=== PATIENT | male | born 1950 | race Hispanic/Latino ===

== ENCOUNTER 2017-08-11 04:06 | Inpatient (IN) | payer OTHER ==
[2017-08-11] VITALS (13 sets, daily range): BP systolic 107–136; BP diastolic 59–85
[~2017-08-11] VITALS: Ht 172.7 cm; Wt 141.1 kg
[2017-08-11] MEDS ORDERED: SERT50TA12 PO (09:13)
[2017-08-11] MEDS ORDERED: AMLO10TA4 PO (09:13)
[2017-08-11] MEDS ORDERED: TRAZ-144 PO (09:13)
[2017-08-11] MEDS ORDERED: FURO20TA6 PO (09:13)
[2017-08-11] MEDS ORDERED: METF10004 PO (09:13)
[2017-08-11] MEDS ORDERED: ASPI-555 PO (09:13)
[2017-08-11] MEDS ORDERED: ROSU20TA38 PO (09:13)
[2017-08-11] MEDS ORDERED: GABA-531 PO (09:13)
[2017-08-11] MEDS ORDERED: CLOP75TA14 PO (09:13)
[2017-08-11] MEDS ORDERED: LOSA50TA37 PO (09:13)
[2017-08-11] MEDS ORDERED: IOPAMIDOL-370 100 ML VIAL IV ONE (11:42)
[2017-08-11] MEDS ORDERED: ISOVUE-370 50ML VIAL IV ONE (11:42)
[2017-08-11] MEDS ORDERED: LIDOCAINE HCL 2% 20ML ONE (11:42)
[2017-08-11] MEDS ORDERED: HEPARIN SODIUM 1000UNIT/ML 10ML VIAL ONE (11:42)
[2017-08-11] MEDS ORDERED: NITROGLYCERIN 5 MG/ML 10 ML VIAL IV ONE (11:42)
[2017-08-11] MEDS ORDERED: GLUCAGON 1MG KIT 1 MG ML IM PRN (12:45)
[2017-08-11] MEDS ORDERED: DEXTROSE 50%-WATER 50 ML DISP.SYRIN IV PRN (12:45)
[2017-08-11 16:02] LABS: CHOLESTEROL 148 mg/dL (<200); HDL CHOLESTEROL 45 mg/dL (29-71); LDL DIRECT 90 mg/dL (0-99); TRIGLYCERIDES 111 mg/dL (30-200)
[2017-08-11 16:25] LABS: HEMOGLOBIN A1C 7.6 % (4.0-6.0)
[2017-08-11] MEDS ORDERED: TRAZODONE HCL 50 MG TAB PO SCH (21:00)
[2017-08-11] MEDS ORDERED: ATORVASTATIN CALCIUM 40 MG TABLET PO SCH (21:00)
[2017-08-11] MEDS: GABAPENTIN 300 MG CAPSULE PO SCH ×2 (21:00→21:04)
[2017-08-12] VITALS (13 sets, daily range): BP systolic 86–147; BP diastolic 36–85
[2017-08-12 04:28] LABS: HEMATOCRIT 48.5 % (42-54); MEAN CORPUSCULAR HEMOGLOBIN 30.5 pg (27.0-33.0); MEAN CORPUSCULAR HGB CONC 34.4 g/dL (32.0-36.0); MEAN CORPUSCULAR VOLUME 88.6 fL (79-99); NUCLEATED RED BLOOD CELLS 0.1 % (0.0-0.19); PLATELET COUNT (AUTO) 247 K/uL (130-400); RED BLOOD CELL COUNT(AUTO) 5.48 MIL/uL (4.50-6.20); RED CELL DISTRIBUTION WIDTH 13.9 % (11.0-15.5); WHITE BLOOD COUNT (AUTO) 7.8 K/uL (4.8-10.8)
[2017-08-12 04:35] LABS: POTASSIUM 4.7 mmol/L (3.5-5.1)
[2017-08-12 04:36] LABS: BAND NEUTROPHILS % (MANUAL) 9 % (0-2); LYMPHOCYTES % (MANUAL) 21 % (22-44); MONOCYTES % (MANUAL) 4 % (2-9); SEGMENTED NEUTROPHILS % 66 % (40-70)
[2017-08-12 04:37] LABS: MAN.DIFF COMMENT-IMPRESSION MANUAL DIFFERENTIAL; PLATELET MORPHOLOGY COMMENT ADEQUATE
[2017-08-12] MEDS ORDERED: CEFUROXIME 1.5GM+NS 100ML 100 ML IV SCH (06:00)
[2017-08-12] MEDS: CEFUROXIME SODIUM 1.5 GM VIAL IVP SCH ×2 (06:00→16:00)
[2017-08-12] MEDS ORDERED: ASPIRIN 81 MG EC TAB PO SCH (09:00)
[2017-08-12] MEDS ORDERED: LOSARTAN 50 MG TABLET PO SCH (09:00)
[2017-08-12] MEDS: GABAPENTIN 300 MG CAPSULE PO SCH ×2 (09:00→13:08)
[2017-08-12] MEDS ORDERED: FUROSEMIDE 20 MG TABLET PO SCH (09:00)
[2017-08-12] MEDS ORDERED: SERTRALINE HCL 50 MG TABLET PO SCH (09:00)
[2017-08-12] MEDS ORDERED: AMLODIPINE BESYLATE 5 MG TAB PO SCH (09:00)
[2017-08-12] MEDS ORDERED: AMINOCAPROIC ACID 250 MG/ML 20 ML VIAL IV ONE ×2 (12:33→15:27)
[2017-08-12] MEDS ORDERED: NITROGLYCERIN 50 MG/D5% WATER 1 BOT ONE (12:33)
[2017-08-12] MEDS ORDERED: SODIUM CHLORIDE 0.9% 1000ML 1,000 ML IV ONE (14:20)
[2017-08-12] MEDS ORDERED: PAPAVERINE HCL 30 MG/ML 2ML VIAL ONE (14:48)
[2017-08-12] MEDS ORDERED: OCTYL 2-CYANOACRYLATE 1 EACH TP ONE (14:48)
[2017-08-12] MEDS ORDERED: BACITRACIN 50,000 UNIT VIAL ONE (14:49)
[2017-08-12] MEDS ORDERED: PROPOFOL 10 MG/ML 20ML VIAL IV ONE (15:27)
[2017-08-12] MEDS ORDERED: EPINEPHRINE 1 MG/ML AMPULE ONE (15:27)
[2017-08-12] MEDS ORDERED: PROTAMINE SULFATE 10 MG/ML 25ML VIAL IV ONE (15:27)
[2017-08-12] MEDS ORDERED: FENTANYL CITRATE PF 50 MCG/1 ML 20ML VIAL IJ ONE (15:27)
[2017-08-12] MEDS ORDERED: NOREPINEPHRINE BITARTRATE 1 MG/1 ML ML IV ONE ×2 (15:27→16:23)
[2017-08-12] MEDS ORDERED: ROCURONIUM BROMIDE 10MG/1ML 5ML VL ONE ×3 (15:27→16:56)
[2017-08-12] MEDS ORDERED: ESMOLOL HCL 10 MG/ML 10 ML VIAL ONE (15:27)
[2017-08-12] MEDS ORDERED: AMIODARONE HCL 900MG/18ML IV ONE (15:27)
[2017-08-12] MEDS ORDERED: GLYCOPYRROLATE 0.2 MG/ML 5 ML VIAL ONE (15:27)
[2017-08-12] MEDS ORDERED: LIDOCAINE PF 2% 5ML ABBOJECT ONE (15:27)
[2017-08-12] MEDS ORDERED: KETAMINE 50MG/ML SYRINGE 50 MG/ML DISP.SYRIN IV ONE (15:27)
[2017-08-12] MEDS ORDERED: HEPARIN SODIUM 1000UNIT/ML 10ML VIAL ONE ×2 (15:27→16:18)
[2017-08-12] MEDS ORDERED: MILRINONE-D5W 20 MG/100 ML 100 ML IV ONE (15:27)
[2017-08-12] MEDS ORDERED: MIDAZOLAM HCL 1 MG/ML 5ML VIAL ONE (15:28)
[2017-08-12] MEDS ORDERED: SODIUM BICARB 50MEQ 50ML VIAL ONE ×7 (15:32→23:18)
[2017-08-12 16:09] LABS: ABG BASE EXCESS -0.6 mmol/L (-2.0-3.0); ABG HCO3 24.1 mmol/L (21.0-28.0); ABG OXYGEN SATURATION 99.4 % (95.0-99.0); ABG PCO2 40 mmHg (35-48)
[2017-08-12] MEDS ORDERED: THROMBIN-JMI 5000 UNIT/VIAL TP ONE (16:17)
[2017-08-12] MEDS ORDERED: SODIUM CHLORIDE 0.9% 500ML 500 ML IV SCH (17:18)
[2017-08-12] MEDS ORDERED: NICARDIPINE HCL 100 MG in SODIUM CHLORIDE 0.9% 100 ML IV PRN (17:30)
[2017-08-12] MEDS ORDERED: MORPHINE SULFATE 4 MG/1ML SYG IV PRN (17:30)
[2017-08-12] MEDS ORDERED: DEXTROSE 50%-WATER 50 ML DISP.SYRIN IV PRN (17:30)
[2017-08-12] MEDS ORDERED: MAGNESIUM 2GM PREMIX 50ML 50 ML IV PRN (17:30)
[2017-08-12] MEDS ORDERED: MORPHINE SULFATE 2 MG/ML 1ML SYG IV PRN (17:30)
[2017-08-12] MEDS ORDERED: SODIUM BICARB 8.4% 50ML SYRINGE IV PRN (17:30)
[2017-08-12] MEDS ORDERED: GLUCAGON 1MG KIT 1 MG ML IM PRN (17:30)
[2017-08-12] MEDS ORDERED: SODIUM CHLORIDE 0.9% 10 ML VIAL IVP PRN (17:30)
[2017-08-12] MEDS ORDERED: PROPOFOL 1000 MG/100 ML 100 ML IV PRN (17:30)
[2017-08-12] MEDS ORDERED: SODIUM CHLORIDE 0.9% 1000ML 1,000 ML IV SCH (17:30)
[2017-08-12] MEDS ORDERED: HYDROCODONE/ACETAMINOPHEN 5/325 MG TAB PO PRN (17:30)
[2017-08-12] MEDS ORDERED: SODIUM CHLORIDE 0.9% 250 ML IV PRN (17:30)
[2017-08-12] MEDS ORDERED: CALCIUM GLUCONATE 1 GM in SODIUM CHLORIDE 0.9% 50 ML IV PRN (17:30)
[2017-08-12] MEDS ORDERED: ACETAMINOPHEN 325 MG TAB PO PRN (17:30)
[2017-08-12] MEDS ORDERED: ONDANSETRON HCL 4 MG/2 ML VIAL IV PRN (17:30)
[2017-08-12] MEDS ORDERED: AMINOCAPROIC ACID 15,000 MG in SODIUM CHLORIDE 0.9% 250 ML IV SCH (17:30)
[2017-08-12] MEDS ORDERED: ACETAMINOPHEN 650 MG SUPPOSITORY RC PRN (17:30)
[2017-08-12] MEDS ORDERED: NITROGLYCERIN 50 MG/D5% WATER 250 BOT IV SCH (17:30)
[2017-08-12] MEDS ORDERED: ALBUMIN (HUMAN) 5% 250 ML IV PRN (17:30)
[2017-08-12] MEDS ORDERED: POTASSIUM PHOS 15 mMOL+NS250ML 250 ML IV PRN (17:30)
[2017-08-12] MEDS ORDERED: EPINEPHRINE 2 MG in SODIUM CHLORIDE 0.9% 250 ML IV PRN (17:30)
[2017-08-12 18:00] LABS: ABG BASE EXCESS -5.3 mmol/L (-2.0-3.0); ABG HCO3 19.5 mmol/L (21.0-28.0); ABG OXYGEN SATURATION 99.4 % (95.0-99.0); ABG PCO2 36 mmHg (35-48)
[2017-08-12] MEDS ORDERED: SODIUM BICARB 8.4% 50ML SYRINGE ONE (18:01)
[2017-08-12 18:52] LABS: ABG BASE EXCESS -1.2 mmol/L (-2.0-3.0); ABG HCO3 23.2 mmol/L (21.0-28.0); ABG OXYGEN SATURATION 99.2 % (95.0-99.0); ABG PCO2 38 mmHg (35-48)
[2017-08-12] MEDS: INSULIN REGULAR, HUMAN 3ML 100 UNIT in SODIUM CHLORIDE 0.9% 99 ML IV SCH ×2 (19:22)
[2017-08-12 19:23] LABS: ABG HCO3 22.2 mmol/L (21.0-28.0); ABG OXYGEN SATURATION 95.1 % (95.0-99.0); ABG PCO2 44 mmHg (35-48)
[2017-08-12 19:25] LABS: HEMATOCRIT 48.3 % (42-54); MEAN CORPUSCULAR HEMOGLOBIN 29.7 pg (27.0-33.0); MEAN CORPUSCULAR HGB CONC 33.6 g/dL (32.0-36.0); MEAN CORPUSCULAR VOLUME 88.3 fL (79-99); NUCLEATED RED BLOOD CELLS 0.1 % (0.0-0.19); PLATELET COUNT (AUTO) 291 K/uL (130-400); RED BLOOD CELL COUNT(AUTO) 5.47 MIL/uL (4.50-6.20)
[2017-08-12] MEDS ORDERED: EPINEPHRINE 8 MG in SODIUM CHLORIDE 0.9% 250 ML IV PRN (19:30)
[2017-08-12] MEDS: POTASSIUM CHLORIDE 20MEQ/100ML 100 ML IV PRN ×3 (19:33→22:44)
[2017-08-12 19:43] LABS: MAGNESIUM 1.8 mg/dL (1.80-2.40); PHOSPHORUS 4.4 mg/dL (2.5-4.9); POTASSIUM 3.1 mmol/L (3.5-5.1)
[2017-08-12 21:15] LABS: ABG BASE EXCESS -5.2 mmol/L (-2.0-3.0); ABG HCO3 21.3 mmol/L (21.0-28.0); ABG OXYGEN SATURATION 97.3 % (95.0-99.0); ABG PCO2 45 mmHg (35-48)
[2017-08-12 23:15] LABS: ABG HCO3 22.8 mmol/L (21.0-28.0); ABG OXYGEN SATURATION 95.4 % (95.0-99.0); ABG PCO2 43 mmHg (35-48)
[2017-08-13] VITALS (17 sets, daily range): BP systolic 100–139; BP diastolic 44–76
[2017-08-13 00:12] LABS: ABG BASE EXCESS -0.3 mmol/L (-2.0-3.0); ABG OXYGEN SATURATION 96.4 % (95.0-99.0); ABG PCO2 43 mmHg (35-48)
[2017-08-13] MEDS: POTASSIUM CHLORIDE 20MEQ/100ML 100 ML IV PRN ×3 (00:29→05:49)
[2017-08-13] MEDS: NOREPINEPHRINE 4MG/NS 250ML 250 ML IV PRN ×2 (00:36→08:13)
[2017-08-13] MEDS ORDERED: CEFUROXIME SODIUM 1.5 GM VIAL IVP SCH (01:30)
[2017-08-13] MEDS ORDERED: CEFUROXIME 1.5GM+NS 100ML 100 ML IV SCH (01:30)
[2017-08-13 02:33] LABS: ABG BASE EXCESS -2.4 mmol/L (-2.0-3.0); ABG HCO3 24.4 mmol/L (21.0-28.0); ABG OXYGEN SATURATION 95.6 % (95.0-99.0); ABG PCO2 50 mmHg (35-48)
[2017-08-13] MEDS ORDERED: SODIUM BICARB 50MEQ 50ML VIAL ONE (02:38)
[2017-08-13] MEDS: WATER FOR INJECTION,STERILE 20 ML VIAL IJ SCH ×2 (04:00→13:30)
[2017-08-13] MEDS: CEFUROXIME SODIUM 1.5 GM VIAL IVP SCH ×2 (04:14→15:40)
[2017-08-13 05:05] LABS: HEMATOCRIT 45.3 % (42-54); MEAN CORPUSCULAR HEMOGLOBIN 30.4 pg (27.0-33.0); MEAN CORPUSCULAR HGB CONC 34.1 g/dL (32.0-36.0); MEAN CORPUSCULAR VOLUME 89.1 fL (79-99); PLATELET COUNT (AUTO) 258 K/uL (130-400); RED BLOOD CELL COUNT(AUTO) 5.09 MIL/uL (4.50-6.20); WHITE BLOOD COUNT (AUTO) 19.5 K/uL (4.8-10.8)
[2017-08-13 05:13] LABS: CREATININE 1.2 mg/dL (0.5-1.5); MAGNESIUM 2.4 mg/dL (1.80-2.40); PHOSPHORUS 2.5 mg/dL (2.5-4.9); POTASSIUM 3.6 mmol/L (3.5-5.1)
[2017-08-13] MEDS: INSULIN REGULAR, HUMAN 3ML 100 UNIT in SODIUM CHLORIDE 0.9% 99 ML IV SCH ×2 (05:56)
[2017-08-13] MEDS: ASPIRIN 81MG TAB.CHEW PO SCH (08:27)
[2017-08-13] MEDS: PANTOPRAZOLE SODIUM 40 MG TABLET.DR PO SCH (08:27)
[2017-08-13] MEDS: METOPROLOL TARTRATE 25 MG TAB PO SCH ×2 (08:42→20:28)
[2017-08-13] MEDS: HYDROCODONE/ACETAMINOPHEN 5/325 MG TAB PO PRN (19:04)
[2017-08-13] MEDS: ATORVASTATIN CALCIUM 10 MG TABLET PO SCH (20:29)
[2017-08-14] VITALS (21 sets, daily range): BP systolic 88–123; BP diastolic 31–76
[2017-08-14] MEDS: HYDROCODONE/ACETAMINOPHEN 5/325 MG TAB PO PRN ×2 (00:55→06:24)
[2017-08-14] MEDS: CEFUROXIME SODIUM 1.5 GM VIAL IVP SCH (04:40)
[2017-08-14] MEDS: WATER FOR INJECTION,STERILE 20 ML VIAL IJ SCH (04:40)
[2017-08-14 05:14] LABS: HEMATOCRIT 41.4 % (42-54); MEAN CORPUSCULAR HEMOGLOBIN 30.4 pg (27.0-33.0); MEAN CORPUSCULAR HGB CONC 34.3 g/dL (32.0-36.0); MEAN CORPUSCULAR VOLUME 88.7 fL (79-99); PLATELET COUNT (AUTO) 201 K/uL (130-400); RED BLOOD CELL COUNT(AUTO) 4.66 MIL/uL (4.50-6.20); RED CELL DISTRIBUTION WIDTH 14.2 % (11.0-15.5); WHITE BLOOD COUNT (AUTO) 18.6 K/uL (4.8-10.8)
[2017-08-14 05:26] LABS: CREATININE 0.9 mg/dL (0.5-1.5); POTASSIUM 4.1 mmol/L (3.5-5.1)
[2017-08-14 05:30] LABS: MAGNESIUM 2.1 mg/dL (1.80-2.40); PHOSPHORUS 3.1 mg/dL (2.5-4.9)
[2017-08-14] MEDS: INSULIN HUMULIN R 100 UNIT/ML 3ML SQ SCH ×4 (07:30→21:00)
[2017-08-14] MEDS ORDERED: FAMOTIDINE 20MG TAB 20 MG TAB ONE (08:11)
[2017-08-14] MEDS: PANTOPRAZOLE SODIUM 40 MG TABLET.DR PO SCH (08:13)
[2017-08-14] MEDS: METOPROLOL TARTRATE 25 MG TAB PO SCH ×2 (08:13→20:28)
[2017-08-14] MEDS: ASPIRIN 81MG TAB.CHEW PO SCH (08:13)
[2017-08-14] MEDS ORDERED: FUROSEMIDE 20 MG TABLET ONE (08:13)
[2017-08-14] MEDS: FUROSEMIDE 20 MG TABLET PO SCH ×2 (08:50→16:46)
[2017-08-14] MEDS: ATORVASTATIN CALCIUM 10 MG TABLET PO SCH (20:28)
[2017-08-14] MEDS: ENOXAPARIN SODIUM 40 MG/0.4 ML SYRINGE SQ SCH (20:30)
[2017-08-15] VITALS (7 sets, daily range): BP systolic 89–129; BP diastolic 50–73
[2017-08-15] MEDS: INSULIN HUMULIN R 100 UNIT/ML 3ML SQ SCH ×3 (06:27→21:00)
[2017-08-15] MEDS: METOPROLOL TARTRATE 25 MG TAB PO SCH (10:45)
[2017-08-15] MEDS: PANTOPRAZOLE SODIUM 40 MG TABLET.DR PO SCH (10:47)
[2017-08-15] MEDS: FUROSEMIDE 20 MG TABLET PO SCH ×2 (10:48→21:51)
[2017-08-15] MEDS: ASPIRIN 81MG TAB.CHEW PO SCH (10:48)
[2017-08-15] MEDS: ENOXAPARIN SODIUM 40 MG/0.4 ML SYRINGE SQ SCH (20:29)
[2017-08-15] MEDS: ATORVASTATIN CALCIUM 10 MG TABLET PO SCH (20:29)
[2017-08-16 03:46] VITALS: BP 151/88
[2017-08-16 04:25] LABS: BASOPHILS % (AUTO) 0.2 % (0.0-5.0); EOSINOPHILS % (AUTO) 0.7 % (0.0-8.0); HEMATOCRIT 39.4 % (42-54); LYMPHOCYTES % (AUTO) 17.7 % (21.0-51.0); MEAN CORPUSCULAR HEMOGLOBIN 30.8 pg (27.0-33.0); MEAN CORPUSCULAR HGB CONC 34.7 g/dL (32.0-36.0); MEAN CORPUSCULAR VOLUME 88.7 fL (79-99); MONOCYTES % (AUTO) 6.3 % (3.0-13.0); NEUTROPHILS % (AUTO) 75.1 % (40.0-77.0); PLATELET COUNT (AUTO) 202 K/uL (130-400); RED BLOOD CELL COUNT(AUTO) 4.45 MIL/uL (4.50-6.20); RED CELL DISTRIBUTION WIDTH 14.1 % (11.0-15.5); WHITE BLOOD COUNT (AUTO) 10.3 K/uL (4.8-10.8)
[2017-08-16 04:28] LABS: CREATININE 0.9 mg/dL (0.5-1.5); POTASSIUM 3.7 mmol/L (3.5-5.1)
[2017-08-16] MEDS: INSULIN HUMULIN R 100 UNIT/ML 3ML SQ SCH ×4 (06:20→21:00)
[2017-08-16 07:27] VITALS: BP_SYST 113; BP_SYST 131; BP_DIAS 63; BP_DIAS 75
[2017-08-16] MEDS: ASPIRIN 81MG TAB.CHEW PO SCH (08:17)
[2017-08-16] MEDS: PANTOPRAZOLE SODIUM 40 MG TABLET.DR PO SCH (08:17)
[2017-08-16] MEDS: METOPROLOL TARTRATE 25 MG TAB PO SCH ×2 (08:17→21:00)
[2017-08-16] MEDS: FUROSEMIDE 20 MG TABLET PO SCH ×2 (08:17→16:51)
[2017-08-16 11:12] VITALS: BP 98/50
[2017-08-16 16:12] VITALS: BP 108/68
[2017-08-16 19:26] VITALS: BP 149/67
[2017-08-16] MEDS: ATORVASTATIN CALCIUM 10 MG TABLET PO SCH (21:00)
[2017-08-16] MEDS: ENOXAPARIN SODIUM 40 MG/0.4 ML SYRINGE SQ SCH (21:03)
[2017-08-16 23:38] VITALS: BP 117/71
[2017-08-17 03:41] VITALS: BP 140/62
[2017-08-17] MEDS: INSULIN HUMULIN R 100 UNIT/ML 3ML SQ SCH ×4 (06:38→21:00)
[2017-08-17 07:00] VITALS: BP 125/64
[2017-08-17] MEDS: PANTOPRAZOLE SODIUM 40 MG TABLET.DR PO SCH (09:13)
[2017-08-17] MEDS: METOPROLOL TARTRATE 25 MG TAB PO SCH ×2 (09:14→21:05)
[2017-08-17] MEDS: ASPIRIN 81MG TAB.CHEW PO SCH (09:14)
[2017-08-17] MEDS: FUROSEMIDE 20 MG TABLET PO SCH ×2 (09:23→17:20)
[2017-08-17 11:00] VITALS: BP 113/54
[2017-08-17 16:00] VITALS: BP 100/62
[2017-08-17 19:31] VITALS: BP 94/71
[2017-08-17] MEDS: ATORVASTATIN CALCIUM 10 MG TABLET PO SCH (21:04)
[2017-08-17] MEDS: ENOXAPARIN SODIUM 40 MG/0.4 ML SYRINGE SQ SCH (21:04)
[2017-08-17 23:14] VITALS: BP 111/57
[2017-08-18 03:45] VITALS: BP 129/70
[2017-08-18] MEDS: INSULIN HUMULIN R 100 UNIT/ML 3ML SQ SCH ×4 (06:00→21:00)
[2017-08-18 07:00] VITALS: BP 124/66
[2017-08-18] MEDS: PANTOPRAZOLE SODIUM 40 MG TABLET.DR PO SCH (08:42)
[2017-08-18] MEDS: ASPIRIN 81MG TAB.CHEW PO SCH (08:42)
[2017-08-18] MEDS: METOPROLOL TARTRATE 25 MG TAB PO SCH ×2 (08:43→21:36)
[2017-08-18] MEDS: FUROSEMIDE 20 MG TABLET PO SCH (08:43)
[2017-08-18 10:36] LABS: CREATININE 0.7 mg/dL (0.5-1.5); POTASSIUM 3.6 mmol/L (3.5-5.1)
[2017-08-18 11:00] VITALS: BP 110/55
[2017-08-18 16:00] VITALS: BP 102/56
[2017-08-18] MEDS: FUROSEMIDE 40 MG TABLET PO SCH (17:38)
[2017-08-18 19:41] VITALS: BP 139/74
[2017-08-18] MEDS: ENOXAPARIN SODIUM 40 MG/0.4 ML SYRINGE SQ SCH (21:35)
[2017-08-18] MEDS: ATORVASTATIN CALCIUM 10 MG TABLET PO SCH (21:36)
[2017-08-18] MEDS: POTASSIUM CHLORIDE 20 MEQ ERTAB PO SCH (21:36)
[2017-08-18 23:23] VITALS: BP 116/68
[2017-08-19 04:19] VITALS: BP 132/73
[2017-08-19] MEDS: INSULIN HUMULIN R 100 UNIT/ML 3ML SQ SCH ×4 (06:43→21:00)
[2017-08-19 08:00] VITALS: BP 110/64
[2017-08-19] MEDS: FUROSEMIDE 40 MG TABLET PO SCH ×2 (09:24→17:59)
[2017-08-19] MEDS: PANTOPRAZOLE SODIUM 40 MG TABLET.DR PO SCH (09:25)
[2017-08-19] MEDS: POTASSIUM CHLORIDE 20 MEQ ERTAB PO SCH ×2 (09:25→21:36)
[2017-08-19] MEDS: METOPROLOL TARTRATE 25 MG TAB PO SCH ×2 (09:25→21:37)
[2017-08-19] MEDS: ASPIRIN 81MG TAB.CHEW PO SCH (09:25)
[2017-08-19 11:56] VITALS: BP 110/55
[2017-08-19 16:00] VITALS: BP 110/58
[2017-08-19 19:52] VITALS: BP 125/56
[2017-08-19] MEDS: ENOXAPARIN SODIUM 40 MG/0.4 ML SYRINGE SQ SCH (21:35)
[2017-08-19] MEDS: ATORVASTATIN CALCIUM 10 MG TABLET PO SCH (21:36)
[2017-08-20] VITALS (7 sets, daily range): BP systolic 91–125; BP diastolic 50–64
[2017-08-20] MEDS: INSULIN HUMULIN R 100 UNIT/ML 3ML SQ SCH ×4 (06:06→21:00)
[2017-08-20] MEDS: POTASSIUM CHLORIDE 20 MEQ ERTAB PO SCH ×2 (09:06→20:59)
[2017-08-20] MEDS: ASPIRIN 81MG TAB.CHEW PO SCH (09:06)
[2017-08-20] MEDS: PANTOPRAZOLE SODIUM 40 MG TABLET.DR PO SCH (09:06)
[2017-08-20] MEDS: METOPROLOL TARTRATE 25 MG TAB PO SCH ×2 (09:06→21:00)
[2017-08-20] MEDS: FUROSEMIDE 40 MG TABLET PO SCH ×2 (09:06→18:00)
[2017-08-20] MEDS: ATORVASTATIN CALCIUM 10 MG TABLET PO SCH (20:59)
[2017-08-20] MEDS: ENOXAPARIN SODIUM 40 MG/0.4 ML SYRINGE SQ SCH (21:00)
[2017-08-21 03:00] VITALS: BP 105/60
[2017-08-21] MEDS: INSULIN HUMULIN R 100 UNIT/ML 3ML SQ SCH ×2 (06:19→11:30)
[2017-08-21 07:55] VITALS: BP 100/60
[2017-08-21] MEDS: PANTOPRAZOLE SODIUM 40 MG TABLET.DR PO SCH (08:59)
[2017-08-21] MEDS: FUROSEMIDE 40 MG TABLET PO SCH ×2 (08:59→15:49)
[2017-08-21] MEDS: ASPIRIN 81MG TAB.CHEW PO SCH (08:59)
[2017-08-21] MEDS: METOPROLOL TARTRATE 25 MG TAB PO SCH (09:00)
[2017-08-21] MEDS: POTASSIUM CHLORIDE 20 MEQ ERTAB PO SCH (09:00)
[2017-08-21 11:43] VITALS: BP 104/62
[2017-08-21] MEDS ORDERED: ATOR10 PO (13:41)
[2017-08-21] MEDS ORDERED: ASPI-1005 PO (13:41)
[2017-08-21] MEDS ORDERED: METO25 PO (13:41)
[2017-08-21] MEDS ORDERED: FURO40TA7 PO (13:41)
== END 2017-08-21 15:55 | DRG 233 ==
LOC: 2AH 05:13 → 2CV 08-12 14:59 → 2BH 08-13 05:58 → 2CH 08-13 16:39 → 2AH 08-15 18:01
PROVIDERS: ADMIT Family Medicine; ATTEND Family Medicine
PROC: 4A023N7 Measurement of Cardiac Sampling and Pressure, Left Heart, Percutaneous Approach (ICD-10-PCS; principal; 2017-08-11)
PROC: B2111ZZ Fluoroscopy of Multiple Coronary Arteries using Low Osmolar Contrast (ICD-10-PCS; 2017-08-11)
PROC: B2151ZZ Fluoroscopy of Left Heart using Low Osmolar Contrast (ICD-10-PCS; 2017-08-11)
PROC: 021009W Bypass Coronary Artery, One Artery from Aorta with Autologous Venous Tissue, Open Approach (ICD-10-PCS; 2017-08-12)
PROC: 06BQ4ZZ Excision of Left Saphenous Vein, Percutaneous Endoscopic Approach (ICD-10-PCS; 2017-08-12)
PROC: 02100Z9 Bypass Coronary Artery, One Artery from Left Internal Mammary, Open Approach (ICD-10-PCS; 2017-08-12)
DX: I21.4 Non-ST elevation (NSTEMI) myocardial infarction (principal); I50.23 Acute on chronic systolic (congestive) heart failure; Z68.42 Body mass index [BMI] 45.0-49.9, adult; I69.354 Hemiplegia and hemiparesis following cerebral infarction affecting left non-dominant side; E66.01 Morbid (severe) obesity due to excess calories; E11.9 Type 2 diabetes mellitus without complications; I25.110 Atherosclerotic heart disease of native coronary artery with unstable angina pectoris; I11.0 Hypertensive heart disease with heart failure; J44.9 Chronic obstructive pulmonary disease, unspecified; I44.7 Left bundle-branch block, unspecified; E78.5 Hyperlipidemia, unspecified; F17.200 Nicotine dependence, unspecified, uncomplicated; I25.5 Ischemic cardiomyopathy; Z95.1 Presence of aortocoronary bypass graft; Z79.82 Long term (current) use of aspirin; Z79.899 Other long term (current) drug therapy
CPT/HCPCS: 36415; 36600; 71045; 80048; 80061; 82330; 82435; 82803; 82947; 82948; 83036; 83605; 83735; 83880; 84100; 84132; 84295; 85018; 85025; 85027; 85347; 86850; 86900; 86901; 86922; 93005; 93458; 93880; 94002; 94003; 94010; 94150; 97039; A4218; A7048; C1894; J0171; J0282; J0697; J1644; J1650; J1815; J2001; J2250; J2260; J2270; J2405; J2440; J2704; J2720; J3010; J3475; J3480; J3490; J7030; J7040; Q9967

== ENCOUNTER 2019-11-07 09:03 | Inpatient (IN) | payer OTHER ==
[2019-11-07] VITALS (10 sets, daily range): BP systolic 117–162; BP diastolic 43–89
[~2019-11-07] VITALS: Ht 172.7 cm; Wt 136.8 kg
[~2019-11-07 09:03] MED LIST: AMLO10TA4 PO; ASPI-1005 PO; ASPI-556 PO; ATOR10 PO; CLOP75TA14 PO; FURO40TA7 PO; GABA-531 PO; LOSA50TA64 PO; METF-446 PO; METO25 PO; SERT50TA12 PO; TRAZ-185 PO
[2019-11-07] MEDS ORDERED: MIDAZOLAM HCL 1 MG/ML 2ML VIAL ONE (12:50)
[2019-11-07] MEDS ORDERED: IODIXANOL 320 MG/ML 100 ML VIAL ONE (12:50)
[2019-11-07] MEDS ORDERED: BUPIVACAINE/PF 0.25% 30ML VIAL IJ ONE (12:50)
[2019-11-07] MEDS ORDERED: MEPERIDINE-PF 25 MG/ML SYG ONE (12:51)
[2019-11-07] MEDS ORDERED: VANCOMYCIN 1GM+NS 250ML 500 ML IV ONE (12:51)
[2019-11-07] MEDS ORDERED: LIDOCAINE HCL 1% MDV 50ML VIAL ONE (12:51)
[2019-11-07 13:01] LABS: BASOPHILS % (AUTO) 0.5 % (0.0-5.0); EOSINOPHILS % (AUTO) 0.3 % (0.0-8.0); HEMATOCRIT 44.9 % (42-54); LYMPHOCYTES % (AUTO) 23.7 % (21.0-51.0); MEAN CORPUSCULAR HEMOGLOBIN 30.3 pg (27.0-33.0); MEAN CORPUSCULAR HGB CONC 33.2 g/dL (32.0-36.0); MEAN CORPUSCULAR VOLUME 91.4 fL (79-99); MONOCYTES % (AUTO) 6.9 % (3.0-13.0); NEUTROPHILS % (AUTO) 68.4 % (40.0-77.0); PLATELET COUNT (AUTO) 243 K/uL (130-400); RED BLOOD CELL COUNT(AUTO) 4.91 MIL/uL (4.50-6.20); RED CELL DISTRIBUTION WIDTH 13.9 % (11.0-15.5); WHITE BLOOD COUNT (AUTO) 9.2 K/uL (4.8-10.8)
[2019-11-07 13:09] LABS: INR 1.04 (0.85-1.15); PARTIAL THROMBOPLASTIN TIME 28.9 SEC (26.3-35.5); PROTHROMBIN TIME 11.2 SEC (9.6-11.6)
[2019-11-07 13:21] LABS: ALBUMIN 3.1 g/dL (3.5-5.0); BILIRUBIN,TOTAL 0.7 mg/dL (0.2-1.0); CREATININE 1.2 mg/dL (0.5-1.5); MAGNESIUM 2.7 mg/dL (1.80-2.40); POTASSIUM 4.4 mmol/L (3.5-5.1); TOTAL PROTEIN, SERUM 7.4 g/dL (6.0-8.3)
[2019-11-07] MEDS ORDERED: IOHEXOL-350 50ML VIAL IV ONE (13:27)
[2019-11-07] MEDS ORDERED: ACETAMINOPHEN-CODEINE 300/30MG TAB PO PRN (14:30)
--- NOTE | 2019-11-07 15:00 | NUR ---
TRANSFER FROM ICU/CATHLAB S/P LEFT CHEST DUAL CHAMBER BIOTRONIC PACEMAKER. PATIENT IS AWAKE AND ALERT X3. PRESSURE DRESSING NOTED TO LEFT UPPER CHEST WHICH IS TO REMAIN UNTIL AM, NO SIGNS OF BLEEDING. HAS LEFT ARM PRECAUTIONS WITH ARM SLING IN PLACE. IV TO LEFT ANTECUBITAL 20G. HAS ESPINO CATHETER PRESENT 16FR DRAINING YELLOW URINE. DENIES HAVING PAIN AT THIS TIME.
--- NOTE | 2019-11-07 19:00 | NUR ---
Supervisor Wrapping Room Notified Flavio Pollard Np re pt.s being admitted to PCCU post op.
[2019-11-07] MEDS ORDERED: METF-446 PO (20:12)
[2019-11-07] MEDS ORDERED: GLUCAGON 1MG KIT 1 MG ML IM PRN (20:15)
[2019-11-07] MEDS ORDERED: ACETAMINOPHEN 325 MG TAB PO PRN (20:15)
[2019-11-07] MEDS ORDERED: DEXTROSE 50%-WATER 50 ML DISP.SYRIN IV PRN (20:15)
[2019-11-07] MEDS: INSULIN HUMULIN R 100 UNIT/ML 3ML SQ SCH (21:00)
--- NOTE | 2019-11-07 22:00 | NUR ---
ACTIVITY Pt assisted up in chair,siddhartha well.
[2019-11-08] VITALS: BP 139/65
[2019-11-08 04:00] VITALS: BP 142/71
--- NOTE | 2019-11-08 04:00 | NUR ---
SLEEP Pt resting quietly,eyes closed.Arousable.Denies pain or sob.Dressing to left upper chest dry and intact.Arm sling in place.
[2019-11-08] MEDS: INSULIN HUMULIN R 100 UNIT/ML 3ML SQ SCH ×2 (06:04→11:30)
[2019-11-08 08:30] VITALS: BP 142/67
[2019-11-08] MEDS ORDERED: LOSARTAN 50 MG TABLET PO SCH (09:00)
[2019-11-08 12:16] VITALS: BP 133/58
--- NOTE | 2019-11-08 14:10 | NUR ---
DISCHARGE DISCHARGE INSTRUCTIONS GIVEN TO PATIENT, VERBALIZED UNDERSTANDING. POST PACEMAKER CARE INSTRUCTIONS GIVEN TO PATIENT VERBALLY AND ON PAPER. PATIENT INSTRUCTED TO WEAR ARM SLING TO LEFT ARM AND NOT RAISE LEFT ARM ABOVE HEART FOR 6 WEEKS. PATIENT HAS FOLLOW UP APPOINTMENT WITH [facility] FOR 11/21/19. IV REMOVED NO BLEEDING NOTED, TELEPAK DC'D. PACEMAKER BOOKLET AND CARD GIVEN TO PATIENT. PATIENT HAS TO WAIT FOR FAMILY TO PICK HIM UP, THEY ARE DRIVING FROM [place].
[2019-11-08] MEDS ORDERED: ATORVASTATIN CALCIUM 40 MG TABLET PO SCH (21:00)
--- NOTE | 2019-11-09 09:01 | NUR ---
CM NOTE PATIENT DISCHARGED HOME, NO NEEDS VERBALIZED BY NURSING STAFF. Addendum: 11/09/19 at 0905 by JEANIE TRONCOSO RN CM Amended: Links added.
== END 2019-11-08 14:10 | disposition home or self-care (01) | DRG 242 ==
LOC: DAHIP 09:03 → UNDOADMIN 09:03 → DAHIP 11:46 → 4BH 15:00
PROVIDERS: ADMIT Internal Medicine; ATTEND Internal Medicine
PROC: 0JH606Z Insertion of Pacemaker, Dual Chamber into Chest Subcutaneous Tissue and Fascia, Open Approach (ICD-10-PCS; principal; 2019-11-07)
PROC: 02HK3JZ Insertion of Pacemaker Lead into Right Ventricle, Percutaneous Approach (ICD-10-PCS; 2019-11-07)
PROC: 02H63JZ Insertion of Pacemaker Lead into Right Atrium, Percutaneous Approach (ICD-10-PCS; 2019-11-07)
PROC: B2161ZZ Fluoroscopy of Right and Left Heart using Low Osmolar Contrast (ICD-10-PCS; 2019-11-07)
DX: I44.2 Atrioventricular block, complete (principal); I50.43 Acute on chronic combined systolic (congestive) and diastolic (congestive) heart failure; R57.0 Cardiogenic shock; I69.354 Hemiplegia and hemiparesis following cerebral infarction affecting left non-dominant side; I11.0 Hypertensive heart disease with heart failure; E78.5 Hyperlipidemia, unspecified; E11.9 Type 2 diabetes mellitus without complications; F17.210 Nicotine dependence, cigarettes, uncomplicated; I48.91 Unspecified atrial fibrillation; I25.10 Atherosclerotic heart disease of native coronary artery without angina pectoris; J44.9 Chronic obstructive pulmonary disease, unspecified; I44.7 Left bundle-branch block, unspecified; Z79.899 Other long term (current) drug therapy; Z95.1 Presence of aortocoronary bypass graft; Z83.6 Family history of other diseases of the respiratory system; Z82.49 Family history of ischemic heart disease and other diseases of the circulatory system
CPT/HCPCS: 33208; 36415; 71045; 80053; 82948; 83036; 83735; 85025; 85610; 85730; 99156; 99157; C1785; G0378; J2175; J2250; J3370; J3490; Q9967

== ENCOUNTER → 2024-10-11 | Outpatient (CLI) | payer OTHER ==
[~2024-10-11] MED LIST changes: -AMLO10TA4 PO; -ASPI-1005 PO; -ASPI-556 PO; +CLOP-31 PO; -CLOP75TA14 PO; -FURO40TA7 PO; -GABA-531 PO; -METO25 PO; +SERT-439 PO; -SERT50TA12 PO; -TRAZ-185 PO
--- NOTE | 2024-10-11 22:37 | HMCSR ---
APPROVED REPORT EXAM: Two-dimensional and M-mode echocardiogram with Doppler and color Doppler. 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 I47.1 2D Dimensions RVDd3.4 cmLVEF(%)52.4 (>50%)LVED Vol(simp.)93.0 mL IVSd1.2 (0.7-1.1cm)FS(%)27 %LVES Vol(simp.)52.0 mL LVDd4.7 (3.8-5.6cm)LA (2D)3.2 (1.6-4.0cm)LVEF(%, simp.)44 % PWd0.9 (0.7-1.1cm)Ao Root(2D)3.3 (2.0-3.7cm)LA ESV INDEX (BP)21.33 mL/m2 IVSs1.6 cmLVOT diam2.0 (1.8-2.4cm) LVDs3.5 (2.5-4.0cm)IVC diam0.9 cm PWs1.2 cm M-Mode Dimensions EPSS1.2 cm LA (MM)3.1 (1.6-4.0cm) Ao Root(MM)3.3 (2.0-3.7cm) Aortic Valve AoV Vmax2.0 m/Tiffanie Peak GR15.4 mmHgLVOT Vmax1.0 m/s AoV VTI0.3 mAo Mean GR9.4 mmHgLVOT VTI0.18 m JUANA (VMAX)1.91 cm2AVA (VTI) 1.9 cm2 Mitral Valve MV E Feta549.3 cm/sDECEL Xzzw665 ms MV A Vmax52.4 cm/sP 1/2 T39 ms E/A ratio2.0MVA (PHT)5.6 cm2 TDI E/E' Jtnpbt03.8E/E' Hmtvmzn32.3 Medial E' Peak V6.14 cm/sLateral E' Peak V3.53 cm/s Pulmonary Valve PV Vmax0.9 m/sPV Mean GR1.9 mmHg PV Peak GR3.3 mmHg Tricuspid Valve TR Vmax2.3 m/sRAP (EST) 3 kzTyYSLT12.3 mmHg TR Peak GR21.3 mmHg Left Ventricle The left ventricle is normal size. There is paradoxical septal wall motion noted. The inferior wall i s hypokinetic. The other stephens are grossly normal in function. Moderate concentric left ventricular h ypertrophy. Left ventricle systolic function is mildly depressed, estimated LVEF 45%. E/E > 14, whic h is suggestive of increased left ventricular end diastolic pressure. Right Ventricle The right ventricle is normal size. The right ventricular systolic function is normal. Device lead is present in the right ventricle. Atria The left atrium mildly dilated. The right atrium is dilated. Aortic Valve Mild aortic annular calcification is noted. The leaflets are thickened and calcified. Trace aortic re gurgitation. There is aortic sclerosis without stenosis, peak velocity 1.9 m/s, mean gradient 9 mmHg. Mitral Valve The mitral valve is normal in structure. The leaflets are mildly thickened and calcified. Trace catalina l regurgitation. There is no mitral valve stenosis. Tricuspid Valve The tricuspid valve is normal in structure. Trace mitral regurgitation. RVSP is 21 mmHg. Pulmonic Valve Pulmonic valve is not well visualized. Great Vessels The aortic root is normal in size. The IVC is normal in size and collapses >50% with inspiration. Pericardium There is no pericardial effusion. Other Information Quality : Adequate Conclusion The left atrium mildly dilated. The right atrium is dilated. Moderate concentric left ventricular hypertrophy. There is paradoxical septal wall motion noted. The inferior wall is hypokinetic. The other stephens ar e grossly normal in function. Left ventricle systolic function is mildly depressed, estimated LVEF 45%. E/E > 14, which is suggestive of increased left ventricular end diastolic pressure. Trace aortic regurgitation. Trace mitral regurgitation. Trace mitral regurgitation. PASP is 24 mmHg. There is no pericardial effusion.
== END | disposition home or self-care (01) ==
LOC: RAH 13:04
PROVIDERS: ATTEND Internal Medicine Cardiovascular Disease
DX: I08.0 Rheumatic disorders of both mitral and aortic valves (principal); I44.2 Atrioventricular block, complete; I47.11 Inappropriate sinus tachycardia, so stated
CPT/HCPCS: 93306